=== PATIENT | male | born 1950 | race Caucasian/White ===

== ENCOUNTER 2021-02-18 07:02 | Emergency (ER) | payer MEDICARE, MEDICAID ==
[~2021-02-18] VITALS: Ht 185.4 cm; Wt 123.7 kg
[2021-02-18 07:09] VITALS: BP 161/90
== END 2021-02-18 09:01 | disposition home or self-care (01) ==
LOC: ER 07:03
DX: M25.512 Pain in left shoulder (principal); M25.561 Pain in right knee; W18.39XA Other fall on same level, initial encounter; Y93.89 Activity, other specified; Y92.89 Other specified places as the place of occurrence of the external cause; Y99.8 Other external cause status
CPT/HCPCS: 73030; 73564; 99284